=== PATIENT | female | born 1945 | race Caucasian/White ===

== ENCOUNTER → 2016-12-17 | Outpatient (CLI) | payer MEDICARE, OTHER ==
[~2016-12-17] MED LIST: CHOL100011 PO; DOCU-131 PO; ESOM20CA PO; TRAM50TA2 PO
[2016-12-17 10:01] LABS: PATH.CAST-FLAG NOT PRESENT; SPERM-FLAG NOT PRESENT; SRC-FLAG NOT PRESENT; XTAL-FLAG NOT PRESENT; YLC-FLAG NOT PRESENT
[2016-12-17 10:09] LABS: BLOOD UREA NITROGEN 11 mg/dL (7-18)
[2016-12-17 10:36] LABS: ASPARTATE AMINO TRANSFERASE 24 U/L (15-37); FERRITIN 14.7 ng/mL (8-252); TOTAL IRON BINDING CAPACITY 447 mcg/dL (250-450); TRANSFERRIN 363 mg/dL (200-360)
[2016-12-17 11:18] LABS: HEMATOCRIT 32.5 % (34.6-47.8); HEMOGLOBIN 10.3 g/dL (11.7-16.4); WHITE BLOOD COUNT 7.9 x10^3/uL (3.4-10)
[2016-12-17 11:19] LABS: DIFF TOTAL CELLS COUNTED 100 CELL DIFF
[2016-12-17 11:24] LABS: ANISOCYTOSIS 1+; MICROCYTOSIS 1+; VERIFY COUNTS? YES
[2016-12-17 11:25] LABS: HYPOCHROMIA 1+; POLYCHROMASIA 1+; TARGET CELLS 1+
[2016-12-18 06:07] LABS: IMMUNOGLOBULIN A 220 mg/dL (87-352); IMMUNOGLOBULIN G 1066 mg/dL (700-1600); IMMUNOGLOBULIN M 90 mg/dL (26-217)
== END | disposition home or self-care (01) ==
LOC: LAB 09:29
PROVIDERS: ATTEND Nurse Practitioner Primary Care
DX: C48.2 Malignant neoplasm of peritoneum, unspecified (principal); R53.83 Other fatigue; F41.9 Anxiety disorder, unspecified; K21.9 Gastro-esophageal reflux disease without esophagitis; R01.1 Cardiac murmur, unspecified; Z79.899 Other long term (current) drug therapy
CPT/HCPCS: 36415; 80053; 80061; 81001; 82043; 82306; 82607; 82728; 82746; 82784; 82785; 83036; 83540; 83550; 84207; 84425; 84439; 84443; 84466; 84480; 85025; 87077; 87086; 87186

== ENCOUNTER → 2016-12-22 | Outpatient (CLI) | payer MEDICARE, OTHER | END | disposition home or self-care (01) | LOC: CFH 07:43 | PROVIDERS: ATTEND Nurse Practitioner Primary Care | DX: I51.7 Cardiomegaly (principal); F41.9 Anxiety disorder, unspecified; K21.9 Gastro-esophageal reflux disease without esophagitis; C48.2 Malignant neoplasm of peritoneum, unspecified; Z79.899 Other long term (current) drug therapy | CPT/HCPCS: 93306 ==

== ENCOUNTER → 2017-01-22 | Outpatient (CLI) | payer MEDICARE, OTHER | END | disposition home or self-care (01) | LOC: LAB 13:47 | PROVIDERS: ATTEND Nurse Practitioner Primary Care | DX: N39.0 Urinary tract infection, site not specified (principal) | CPT/HCPCS: 81003; 87086 ==

== ENCOUNTER → 2017-07-15 | Outpatient (CLI) | payer MEDICARE, OTHER | END | disposition home or self-care (01) | LOC: CFH 13:57 | PROVIDERS: ATTEND Nurse Practitioner Primary Care | DX: M51.37 Other intervertebral disc degeneration, lumbosacral region (principal); M25.551 Pain in right hip; M25.552 Pain in left hip; M54.30 Sciatica, unspecified side; R53.83 Other fatigue; C48.2 Malignant neoplasm of peritoneum, unspecified; E61.1 Iron deficiency; R79.9 Abnormal finding of blood chemistry, unspecified; K21.9 Gastro-esophageal reflux disease without esophagitis; F41.9 Anxiety disorder, unspecified; R01.1 Cardiac murmur, unspecified; H61.23 Impacted cerumen, bilateral; N39.0 Urinary tract infection, site not specified; Z79.899 Other long term (current) drug therapy | CPT/HCPCS: 72072; 72110; 73523 ==

== ENCOUNTER → 2017-07-26 | Outpatient (CLI) | payer MEDICARE, OTHER | LOC: CFH 12:59 | PROVIDERS: ATTEND Nurse Practitioner Primary Care | DX: M51.36 Other intervertebral disc degeneration, lumbar region (principal); M48.061 Spinal stenosis, lumbar region without neurogenic claudication; M41.86 Other forms of scoliosis, lumbar region; K21.9 Gastro-esophageal reflux disease without esophagitis; F41.9 Anxiety disorder, unspecified; H61.23 Impacted cerumen, bilateral; N39.0 Urinary tract infection, site not specified | CPT/HCPCS: 72148 ==

== ENCOUNTER → 2018-07-18 | Outpatient (CLI) | payer MEDICARE, OTHER ==
[~2018-07-18] MED LIST changes: +OMNIPAQUE 350 MG/ML, 100ML BOTTLE ONE
== END | disposition home or self-care (01) ==
LOC: CFH 09:13
PROVIDERS: ATTEND Internal Medicine Hematology & Oncology
DX: N28.1 Cyst of kidney, acquired (principal); M41.84 Other forms of scoliosis, thoracic region; Z90.81 Acquired absence of spleen
CPT/HCPCS: 71260; 74177; Q9967

== ENCOUNTER 2018-09-12 09:08 | Outpatient (CLI) | payer MEDICARE, OTHER ==
[~2018-09-12 09:08] MED LIST changes: -OMNIPAQUE 350 MG/ML, 100ML BOTTLE ONE
[2018-09-12] MEDS ORDERED: OMNIPAQUE 350 MG/ML, 100ML BOTTLE ONE (14:57)
== END 2018-09-12 23:59 | disposition home or self-care (01) ==
LOC: CFH 09:08
PROVIDERS: ATTEND Internal Medicine Hematology & Oncology
DX: C80.1 Malignant (primary) neoplasm, unspecified (principal); J84.10 Pulmonary fibrosis, unspecified; K76.89 Other specified diseases of liver; N28.1 Cyst of kidney, acquired; M47.894 Other spondylosis, thoracic region
CPT/HCPCS: 74160; Q9967

== ENCOUNTER 2019-01-23 10:12 | Outpatient (CLI) | payer MEDICARE, OTHER ==
[2019-01-23 12:47] LABS: BASOPHILS # (AUTO) 0.06 x10^3/uL (0-0.1); BASOPHILS % (AUTO) 1 % (0-1); EOSINOPHILS # (AUTO) 0.14 x10^3/uL (0-0.4); EOSINOPHILS % (AUTO) 2 % (1-7); LYMPHOCYTES # (AUTO) 2.57 x10^3/uL (1-3.4); LYMPHOCYTES % (AUTO) 30 % (22-44); MD NO; MEAN CORPUSCULAR HEMOGLOBIN 31.8 pg (27.0-34.8); MEAN CORPUSCULAR HGB CONC 32.4 g/dL (32.4-35.8); MEAN CORPUSCULAR VOLUME 98.2 fL (80-100); MEAN PLATELET VOLUME 8.9 fL (7.4-10.4); MONOCYTES # (AUTO) 1.08 x10^3/uL (0.2-0.8); MONOCYTES % (AUTO) 13 % (2-9); NEUTROPHILS # (AUTO) 4.61 x10^3/uL (1.8-6.8); NEUTROPHILS % (AUTO) 55 % (42-75); PLATELET COUNT 350 x10^3/uL (130-400); RED CELL DISTRIBUTION WIDTH 13.7 % (9.6-15.2)
[2019-01-23 13:14] LABS: ANION GAP 8 mmol/L (5-15); CALCIUM 8.6 mg/dL (8.5-10.1); CHLORIDE 99 mmol/L (98-107)
[2019-01-23 13:20] LABS: ALANINE AMINOTRANSFERASE 27 U/L (12-78); ALKALINE PHOSPHATASE 91 U/L (45-117); BILIRUBIN,TOTAL 0.5 mg/dL (0.2-1.0); CREATININE 0.93 mg/dL (0.55-1.02); TOTAL PROTEIN 7.4 g/dL (6.4-8.2)
== END 2019-01-23 23:59 | disposition home or self-care (01) ==
LOC: CFH 10:12
PROVIDERS: ATTEND Internal Medicine Hematology & Oncology
DX: Z12.11 Encounter for screening for malignant neoplasm of colon (principal); C24.1 Malignant neoplasm of ampulla of Vater; C78.6 Secondary malignant neoplasm of retroperitoneum and peritoneum; R11.0 Nausea; E16.9 Disorder of pancreatic internal secretion, unspecified; Z45.2 Encounter for adjustment and management of vascular access device
CPT/HCPCS: 36415; 80053; 82378; 85025; 86301; 86304

== ENCOUNTER → 2019-01-31 | Outpatient (CLI) | payer MEDICARE, OTHER ==
[~2019-01-31] MED LIST changes: +OMNIPAQUE 350 MG/ML, 100ML BOTTLE ONE
== END | disposition home or self-care (01) ==
LOC: CFH 12:54
PROVIDERS: ATTEND Internal Medicine Hematology & Oncology
DX: C24.1 Malignant neoplasm of ampulla of Vater (principal); K76.89 Other specified diseases of liver; N28.1 Cyst of kidney, acquired; M47.819 Spondylosis without myelopathy or radiculopathy, site unspecified; M41.80 Other forms of scoliosis, site unspecified; M47.816 Spondylosis without myelopathy or radiculopathy, lumbar region; M41.86 Other forms of scoliosis, lumbar region
CPT/HCPCS: 71260; 74177; Q9967

== ENCOUNTER 2019-06-22 08:53 | Outpatient (CLI) | payer MEDICARE, OTHER ==
[~2019-06-22 08:53] MED LIST changes: -OMNIPAQUE 350 MG/ML, 100ML BOTTLE ONE
== END 2019-06-22 23:59 | disposition home or self-care (01) ==
LOC: PETCFH 08:53
PROVIDERS: ATTEND Internal Medicine Hematology & Oncology
DX: C80.1 Malignant (primary) neoplasm, unspecified (principal); Z90.411 Acquired partial absence of pancreas
CPT/HCPCS: 78815; A9552

== ENCOUNTER 2019-07-21 13:54 | Outpatient (CLI) | payer MEDICARE, OTHER ==
[2019-07-21] MEDS ORDERED: ESCI10TA PO (14:43)
[2019-07-21] MEDS ORDERED: APIX5TAB PO (14:43)
[2019-07-21] MEDS ORDERED: EZET10TA70 PO (14:43)
[2019-07-21] MEDS ORDERED: PANT40TA5 PO (14:43)
[2019-07-21 15:06] LABS: MEAN CORPUSCULAR HEMOGLOBIN 31.3 pg (27.0-34.8); MEAN CORPUSCULAR HGB CONC 32.8 g/dL (32.4-35.8); MEAN CORPUSCULAR VOLUME 95.2 fL (80-100); MEAN PLATELET VOLUME 8.9 fL (7.4-10.4); PLATELET COUNT 362 x10^3/uL (130-400); RED CELL DISTRIBUTION WIDTH 14.1 % (9.6-15.2)
[2019-07-21 15:42] LABS: BASOPHILS # (AUTO) 0.07 x10^3/uL (0-0.1); BASOPHILS % (AUTO) 1 % (0-1); EOSINOPHILS # (AUTO) 0.13 x10^3/uL (0-0.4); EOSINOPHILS % (AUTO) 2 % (1-7); LYMPHOCYTES # (AUTO) 1.99 x10^3/uL (1-3.4); LYMPHOCYTES % (AUTO) 24 % (22-44); MD SCAN; MONOCYTES # (AUTO) 0.71 x10^3/uL (0.2-0.8); MONOCYTES % (AUTO) 9 % (2-9); NEUTROPHILS # (AUTO) 5.53 x10^3/uL (1.8-6.8); NEUTROPHILS % (AUTO) 66 % (42-75)
[2019-07-21 15:44] LABS: INTERNATIONAL NORMALIZED RATIO 1.04 (0.93-1.1)
== END 2019-07-21 23:59 | disposition home or self-care (01) ==
LOC: STAR 13:54
PROVIDERS: ATTEND Internal Medicine Geriatric Medicine
DX: Z01.818 Encounter for other preprocedural examination (principal); R19.09 Other intra-abdominal and pelvic swelling, mass and lump
CPT/HCPCS: 36415; 85025; 85610; 85730; 93005

== ENCOUNTER 2019-08-22 11:51 | Day surgery (SDC) | payer MEDICARE, OTHER ==
[~2019-08-22] VITALS: Ht 160 cm; Wt 51.7 kg
[~2019-08-22 11:51] MED LIST changes: +APIX5TAB PO; +ESCI10TA PO; +EZET10TA70 PO; +PANT40TA5 PO
[2019-08-22] MEDS ORDERED: LIDOCAINE-MPF 2% ,5ML ONE (12:18)
[2019-08-22] MEDS ORDERED: MIDAZOLAM 1 MG/ML, 2ML ONE (12:18)
[2019-08-22] MEDS ORDERED: SUCCINYLCHOLINE 20 MG/ML, 10ML ONE (12:18)
[2019-08-22] MEDS ORDERED: PROPOFOL 10 MG/ML, 20ML ONE (12:18)
[2019-08-22] MEDS ORDERED: LACTATED RINGERS 1,000 ML IV SCH (12:18)
[2019-08-22] MEDS ORDERED: FENTANYL PF 100 MCG/2ML ONE (12:18)
[2019-08-22 12:22] VITALS: BP 109/67
[2019-08-22] MEDS ORDERED: OMEP40CA42 PO (12:29)
[2019-08-22] MEDS ORDERED: ENOX40SY4 SQ (12:29)
[2019-08-22] MEDS ORDERED: METO10TA82 PO (12:29)
[2019-08-22] MEDS ORDERED: TRAM50TA2 PO (12:29)
[2019-08-22] MEDS ORDERED: CHLORHEXIDINE 15 ML UDC MM ONE (12:30)
[2019-08-22 12:39] VITALS: BP 104/67
[2019-08-22] MEDS ORDERED: EPINEPHRINE 1 MG/ML, 1ML ONE (12:53)
[2019-08-22] MEDS ORDERED: FENTANYL PF 100 MCG/2ML IV PRN (13:00)
[2019-08-22] MEDS ORDERED: ONDANSETRON 2MG/ML, 2ML IVPush PRN (13:00)
[2019-08-22] MEDS ORDERED: DEXAMETHASONE 4 MG/ML, 1ML ONE ×2 (13:04)
[2019-08-22] MEDS ORDERED: ONDANSETRON 2MG/ML, 2ML ONE (13:04)
== END 2019-08-22 16:15 | disposition home or self-care (01) ==
LOC: OUT 11:51
PROVIDERS: ATTEND Internal Medicine
DX: C16.9 Malignant neoplasm of stomach, unspecified (principal); Z11.59 Encounter for screening for other viral diseases; K83.1 Obstruction of bile duct; K21.9 Gastro-esophageal reflux disease without esophagitis; Z79.899 Other long term (current) drug therapy; Z88.0 Allergy status to penicillin; Z88.1 Allergy status to other antibiotic agents
CPT/HCPCS: 44360; 74328; J0171; J0330; J1100; J2250; J2405; J2704; J3010; J7120; U0001

== ENCOUNTER → 2019-10-30 | Outpatient (CLI) | payer MEDICARE, OTHER ==
[~2019-10-30] MED LIST changes: +ENOX40SY4 SQ; +METO10TA82 PO; +OMEP40CA42 PO
== END | disposition home or self-care (01) ==
LOC: CFH 09:17
PROVIDERS: ATTEND Nurse Practitioner Primary Care
DX: Z12.31 Encounter for screening mammogram for malignant neoplasm of breast (principal); N64.89 Other specified disorders of breast
CPT/HCPCS: 77063; 77067

== ENCOUNTER → 2020-06-19 | Outpatient (CLI) | payer MEDICARE, OTHER ==
[~2020-06-19] MED LIST changes: -ESCI10TA PO; +ESCI10TA97 PO; -PANT40TA5 PO; +PANT40TA6 PO
== END | disposition home or self-care (01) ==
LOC: ROC 07:30
PROVIDERS: ATTEND Radiology Radiation Oncology
DX: C78.89 Secondary malignant neoplasm of other digestive organs (principal); E78.2 Mixed hyperlipidemia; Z79.899 Other long term (current) drug therapy
CPT/HCPCS: G0463

== ENCOUNTER 2020-07-02 07:59 | Day surgery (SDC) | payer MEDICARE, OTHER ==
[~2020-07-02] VITALS: Ht 160 cm; Wt 54.0 kg
[~2020-07-02 07:59] MED LIST changes: +SULF-23 PO
[2020-07-02] MEDS ORDERED: CHLORHEXIDINE 15 ML UDC PO ONE (08:30)
[2020-07-02 08:38] VITALS: BP 128/78
[2020-07-02] MEDS ORDERED: CHLORHEXIDINE 15 ML UDC ONE (08:39)
[2020-07-02] MEDS ORDERED: FENTANYL PF 100 MCG/2ML ONE (08:43)
[2020-07-02] MEDS ORDERED: MIDAZOLAM 1 MG/ML, 2ML ONE (08:43)
[2020-07-02] MEDS ORDERED: OXYcodone 5 MG/5 ML ORAL.SOL UDC PO PRN (09:00)
[2020-07-02] MEDS ORDERED: HALOPERIDOL 5 MG/ML IV PRN (09:00)
[2020-07-02] MEDS ORDERED: ACETAMINOPHEN 325 MG TABLET PO PRN (09:00)
[2020-07-02] MEDS ORDERED: hydrALAzine 20 MG/ML, 1ML IV PRN (09:00)
[2020-07-02] MEDS ORDERED: LACTATED RINGERS 1,000 ML IV SCH (09:00)
[2020-07-02] MEDS ORDERED: PROMETHAZINE 25 MG/ML, 1ML IVPush PRN (09:00)
[2020-07-02] MEDS ORDERED: METOPROLOL 1 MG/ML, 5ML IV PRN (09:00)
[2020-07-02] MEDS ORDERED: EPHEDRINE 50 MG/ML, 1ML IVPush PRN (09:00)
[2020-07-02] MEDS ORDERED: FENTANYL PF 100 MCG/2ML IV PRN (09:00)
[2020-07-02] MEDS ORDERED: LABETALOL 5MG/ML, 20ML IV PRN (09:00)
[2020-07-02] MEDS ORDERED: ONDANSETRON 2MG/ML, 2ML IVPush PRN (09:00)
[2020-07-02] MEDS ORDERED: DIAZEPAM 5 MG/ML, 2ML IVPush PRN (09:00)
[2020-07-02] MEDS ORDERED: METOCLOPRAMIDE 5 MG/ML, 2ML IVPush PRN (09:00)
[2020-07-02] MEDS ORDERED: DIPHENHYDRAMINE 50 MG/ML, 1ML IVPush PRN (09:00)
[2020-07-02] MEDS ORDERED: PROPOFOL 10 MG/ML, 20ML ONE (09:11)
[2020-07-02] MEDS ORDERED: ONDANSETRON 2MG/ML, 2ML ONE (09:11)
== END 2020-07-02 11:20 | disposition home or self-care (01) ==
LOC: OUT 07:59
PROVIDERS: ATTEND Internal Medicine
DX: C25.2 Malignant neoplasm of tail of pancreas (principal); J45.909 Unspecified asthma, uncomplicated; Z20.822 Contact with and (suspected) exposure to COVID-19; Z79.01 Long term (current) use of anticoagulants; Z79.899 Other long term (current) drug therapy; Z85.028 Personal history of other malignant neoplasm of stomach; Z86.711 Personal history of pulmonary embolism; Z88.0 Allergy status to penicillin; Z88.1 Allergy status to other antibiotic agents; Z91.048 Other nonmedicinal substance allergy status; Z90.49 Acquired absence of other specified parts of digestive tract; Z92.21 Personal history of antineoplastic chemotherapy
CPT/HCPCS: 43259; 93005; J2250; J2405; J2704; J3010; J7120; U0003